=== PATIENT | male | born 1950 | race Caucasian/White ===

== ENCOUNTER 2020-09-22 08:52 | Emergency (ER) | payer MEDICARE ==
[~2020-09-22] VITALS: Ht 175.3 cm; Wt 88.0 kg
--- NOTE | 2020-09-22 09:33 | NUR ---
DR. BARTLETT BEDSIDE FOR EVALUATION.
--- NOTE | 2020-09-22 09:33 | NUR ---
PER PATIENT "I CALLED MY NURSE LINE AND THEY SAID I SHOUDL GET HERE WITHIN AN HOUR. MY FACE IS SWOLLEN AND I HAVE THIS INFECTION. I HAVE PROSTATE CA (STAGE 4) AND AN IMMUNE COMPRAMISE" LEFT EYE REDNESS/SWELLING. PT SITTING UP IN BED. TORY. NIURKAS. AWAITNG ORDERS.
[2020-09-22 10:30] VITALS: BP 166/107
--- NOTE | 2020-09-22 10:40 | NUR ---
Patient given discharge instructions and they have confirmed that they understand the instructions. Patient ambulatory with steady gait.
== END 2020-09-22 10:32 | disposition home or self-care (01) ==
LOC: ED 10:26
DX: L01.01 Non-bullous impetigo (principal); L03.211 Cellulitis of face
CPT/HCPCS: 99283

== ENCOUNTER 2021-02-14 15:33 | Outpatient (CLI) | payer MEDICARE ==
[2021-02-14] MEDS ORDERED: GADOTERATE 10 MMOL/20ML SYR ONE (17:09)
== END 2021-02-14 23:59 | disposition home or self-care (01) ==
LOC: RAD 15:33
PROVIDERS: ATTEND Physician Assistant
DX: C79.51 Secondary malignant neoplasm of bone (principal); M48.07 Spinal stenosis, lumbosacral region; M47.817 Spondylosis without myelopathy or radiculopathy, lumbosacral region; N28.1 Cyst of kidney, acquired
CPT/HCPCS: 72158; A9575